=== PATIENT | male | born 1990 | race Caucasian/White ===

== ENCOUNTER 2016-05-27 03:02 | Emergency (ER) | payer MEDICAID | END 2016-05-27 03:45 | disposition home or self-care (01) | DX: Z02.83 Encounter for blood-alcohol and blood-drug test (principal); F17.200 Nicotine dependence, unspecified, uncomplicated ==

== ENCOUNTER 2018-04-08 09:40 | Emergency (ER) | payer MEDICAID ==
--- NOTE | 2018-04-08 10:43 | ED Physician Documentation ---
PD HPI HEENT - Stated complaint Stated Complaint: MOUTH SWELLING/PX - Chief complaint Chief Complaint: Heent - History obtained from History obtained from: Patient - History of Present Illness Timing - onset: Last night Timing - duration: Hours Timing - details: Gradual onset, Still present Location: Tooth Improves: Nothing Associated symptoms: Swollen nodes, Facial swelling Similar symptoms before: Has not had sx before Recently seen: Not recently seen - Additional information Additional information: 27-year-old male with bad teeth his developed pain in his teeth over the weekend and then yesterday the pain resolved and now he has marked facial swelling. He does have pain whenever he tries to eat or do anything with the teeth on that side and the pain is severe as long as he is not moving around or biting anything he is okay. He does not have a dentist and he does not have a primary care doctor and he has not otherwise been ill recently. Review of Systems Constitutional: denies: Fever, Chills Eyes: denies: Decreased vision Ears: denies: Ear pain Nose: denies: Rhinorrhea / runny nose Throat: reports: Dental pain / toothache Respiratory: denies: Cough GI: denies: Vomiting PD PAST MEDICAL HISTORY - Past Medical History Respiratory: Asthma - Past Surgical History Past Surgical History: No - Present Medications Home Medications: Ambulatory Orders Medication Instructions Recorded Confirmed Acetaminophen 04/08/18 Amoxicillin 875 mg PO BID #14 tablet 04/08/18 Hydrocodone/Acetaminophen 1 - 2 each PO Q6H PRN #14 tablet 04/08/18 [Hydrocodon-Acetaminophen 5-325] - Allergies Allergies/Adverse Reactions: Allergies Allergy/AdvReac Type Severity Reaction Status Date / Time No Known Drug Allergies Allergy Verified 04/08/18 09:49 - Social History Does the pt smoke?: Yes Smoking Status: Current every day smoker Does the pt drink ETOH?: Yes Does the pt have substance abuse?: No - Immunizations Immunizations are current?: No - POLST Patient has POLST: No PD ED PE NORMAL - Vitals Vital signs reviewed: Yes (normal ) - General General: Alert and oriented X 3, No acute distress, Well developed/nourished, Other (obvious swelling to the right lower jaw) - HEENT HEENT: Atraumatic, PERRL, EOMI, Other (There are multiple broken teeth on the right lower and there are 2 that are tender. There is fullness to the buccal fold without fluctuance. ) - Neck Neck: Supple, no meningeal sign, No bony TTP - Respiratory Respiratory: No respiratory distress - Derm Derm: Normal color, Warm and dry, No rash - Extremities Extremities: No deformity, No edema - Neuro Neuro: Alert and oriented X 3, programming specialist 2-12 intact, No motor deficit, No sensory d eficit, Normal speech Eye Opening: Spontaneous Motor: Obeys Commands Verbal: Oriented GCS Score: 15 - Psych Psych: Normal mood, Normal affect Results - Vitals Vitals: Vital Signs - 24 hr 04/08/18 04/08/18 09:43 09:49 Temperature 36.5 C Heart Rate 98 Blood Pressure 118/78 O2 Saturation 98 Oxygen O2 Source Room air PD MEDICAL DECISION MAKING - ED course Complexity details: considered differential, d/w patient ED course: 27 y/o male with bad teeth and a dental abscess is placed on amoxicillin. Departure - Departure Disposition: 01 Home, Self Care Clinical Impression: Dental abscess Condition: Stable Instructions: ED Abscess Dental Follow-Up: [facility] [Provider Group] Prescriptions: Amoxicillin 875 mg PO BID #14 tablet Hydrocodone/Acetaminophen [Hydrocodon-Acetaminophen 5-325] 1 - 2 each PO Q6H PRN #14 tablet PRN Reason: pain
[2018-04-08 11:15] VITALS: BP 120/78
== END 2018-04-08 10:53 | disposition home or self-care (01) ==
LOC: ED 09:40
DX: K04.7 Periapical abscess without sinus (principal); S02.5XXA Fracture of tooth (traumatic), initial encounter for closed fracture; X58.XXXA Exposure to other specified factors, initial encounter; F17.200 Nicotine dependence, unspecified, uncomplicated
CPT/HCPCS: 99283